=== PATIENT | female | born 1995 | race African-American/Black ===

== ENCOUNTER 2022-04-27 14:14 | Emergency (ER) | payer MEDICAID, OTHER ==
[~2022-04-27] VITALS: Ht 160 cm; Wt 59.0 kg
[2022-04-27 14:25] VITALS: BP 104/59
--- NOTE | 2022-04-27 14:25 | NUR ---
BIBS C/O SORE THROAT X2DAYS, COUGH SINCE LAST NIGHT, THREW UP THIS MORNING FROM COUGHING. VITALS ARE WITHIN NORMAL LIMITS, NO RESP DISTRESS NOTED. AWAITING MD TREJO.
--- NOTE | 2022-04-27 15:10 | NUR ---
Patient discharged to home in stable condition. Written and verbal after care instructions given. Patient verbalizes understanding of instruction.
== END 2022-04-27 15:25 | disposition home or self-care (01) ==
LOC: ER 14:20
DX: J02.9 Acute pharyngitis, unspecified (principal)